=== PATIENT | female | born 1965 | race Two or more races ===

== ENCOUNTER → 2020-11-18 08:58 | Outpatient (BNVA) | payer MEDICAID, SELFPAY | PROVIDERS: PCP Nurse Practitioner Family; Visit Provider Urology | DX: R33.9 Retention of urine, unspecified (principal); R10.2 Pelvic and perineal pain; N94.9 Unspecified condition associated with female genital organs and menstrual cycle; N39.9 Disorder of urinary system, unspecified | CPT/HCPCS: 81003 ==

== ENCOUNTER 2021-11-16 13:49 | Emergency (ER) | payer MEDICAID, SELFPAY ==
[2021-11-16 13:55] VITALS: BP 159/100; PULSE 74; RESP 16; TEMP 37; O2SAT 98; BMI 49.6
--- NOTE | 2021-11-16 14:24 | W.ED.GENADLT ---
HPI - General Adult General: Chief complaint: General Medical Stated complaint: lumb in neck-Dr ask to come in if it moved, it did Time Seen by Provider: 11/16/21 14:06 Source: patient Mode of arrival: ambulatory Limitations: no limitations History of Present Illness: Patient is a very nice 56-year-old female presents to ED today with complaints of a possible lump in the left side of her neck that she noticed approximately 3 days ago. She contacted her PCP to schedule an evaluation but was told if the lump moved in any way she needed to come to the ED. Patient feels like the lump has moved inferiorly and was concerned regarding a possible clot to her carotid artery. Patient is not having any trouble breathing or swallowing. No hoarseness. She is not having any neurologic deficits. She has no other associated symptoms. Onset (ago): day(s) Location: neck Severity: mild Relieving factors: none Exacerbating factors: none Associated symptoms: Reports no associated symptoms; Deny chest pain, confusion, dyspnea, headache(s) or malaise Treatments prior to arrival: none Review of Systems Const: Denies: fever(s), chills, body aches, fatigue or malaise Eyes: Denies: change in vision, blurry vision, photophobia, floaters or seeing flashes ENMT: Denies: throat pain or odynophagia Card: Denies: chest pain Resp: Denies: dyspnea GI: Denies: abdominal pain Skin/Breast: Denies: new lesions or changes in skin color Neuro: Denies: headache(s), numbness in extremities, weakness in extremities, sensory changes, lack of coordination, difficulty walking, frequent falls, dizziness, vertigo, confusion, behavioral changes, Slurred speech present, difficulty communicating thoughts or seizure-like activity [facility] [place] ED PFSH: Medical History Cystocele with rectocele Surgical repair-2020 Genital atrophy of female Incomplete bladder emptying Surgical History H/O arthroscopy Revision arthroscopic autograft ligament replacement H/O: hysterectomy 1983 History of bilateral tubal ligation History of bladder surgery History of tonsillectomy Bilateral dissection tonsillectomy Family History Father , at age 54 Sedentary lifestyle Mother Healthy adult Social History Smoking and tobacco status: current every day smoker Alcohol intake: current Alcohol intake frequency: holidays/special occasions only Marital status: Current occupational status: disabled History of recent travel: No Physical Exam Const: COMMON NORMALS: no acute distress, patient oriented x3, no limitations and alert GENERAL APPEARANCE: cooperative NUTRITIONAL APPEARANCE: obese ORIENTATION/CONSCIOUSNESS: Yes awake, Yes oriented to person, Yes oriented to place and Yes oriented to time HENMT: COMMON NORMALS: normocephalic and atraumatic HEAD & SCALP: normal to inspection, normocephalic and atraumatic FACE & SINUS: normal facial exam Eye: GENERAL EYE: appearance normal, both eyes and all related structures and normal light reflex DIRECT OPHTHALMOSCOPY: Yes normal light reflex Neck/C-Spine: COMMON NORMALS: full ROM, no lymphadenopathy, no meningeal signs and Thyroid normal GENERAL: Yes normal visual inspection, No anterior neck swelling and No submandibular swelling THYROID: Thyroid normal CAROTIDS: Yes normal carotid upstroke CERVICAL SPINE: Yes cervical ROM normal OTHER: I do not appreciate any swelling/ lumps /lymphadenopathy or any other abnormalities to her neck with palpation Resp: COMMON NORMALS: normal respiratory effort and clear to auscultation bilaterally AUSCULTATION: clear to auscultation bilaterally Cardio: COMMON NORMALS: regular rate and regular rhythm RATE: regular rate RHYTHM: regular rhythm Neuro: CHYNA COMA SCALE: document GCS findings Chyna coma scale eye opening: Spontaneous Chyna coma scale verbal response: Orientated Rowe coma scale motor response: Obey commands Chyna coma scale total score: 15 COMMON NORMALS: patient oriented x3, CN's II-XII intact bilaterally, moves all extremities, no focal motor deficits, no sensory deficits noted and gait normal SENSORIUM/ORIENTATION: Yes alert, Yes oriented to person, Yes oriented to place and Yes oriented to time MENINGEAL SIGNS: Yes no meningeal signs CRANIAL NERVES: Yes CN normal except as noted SPEECH: speech normal GAIT: Yes Normal gait present MOTOR EXAM: 5/5 motor strength present throughout Skin: COMMON NORMALS: no rashes or lesions noted GENERAL SKIN EXAM: no rashes or lesions noted Course Vital Signs: Vital signs: Vital Signs Temperature 98.6 F 11/16/21 13:55 Pulse Rate 74 11/16/21 13:55 Respiratory Rate 16 11/16/21 13:55 Blood Pressure 159/100 11/16/21 13:55 Pulse Oximetry 98 11/16/21 13:55 MDM - General Adult Medical Decision Making I do not appreciate anything palpable on patient's physical exam. Based on her history and lack of other complaints have zero suspicion at this time for a carotid artery aneurysm, dissection, occlusion, or any other emergent process at this time. Discussed doing an ultrasound however patient feels she would like to wait until her appointment with primary care-I think this is reasonable. Return to ED precautions given. Discharge Plan Discharge Patient Disposition: Home Clinical Impression: Neck pain on left side Condition: Stable Prescriptions: No Action estradiol [Estrace] 0.01 % (0.1 mg/gram) cream 0.25 appful vaginal DAILY Qty: 42.5 12RF Rx Instructions: As directed daily x2 weeks then 3 times per week thereafter Discharge Orders: Discharge ED (Routine); Ordered 11/16/21 Ordered By: Janette Tamez Referrals: Vera Singh NP [Primary Care Provider] - Activity Restrictions/Additional Instructions: As we discussed please follow-up with primary care on as scheduled. Based on your history and physical exam I do not have any concern for anything emergent or life-threatening at this time and feel you are stable to continue following up with this on an outpatient basis. I hope you begin to feel better soon. 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
== END 2021-11-16 14:33 | disposition home or self-care (01) ==
PROVIDERS: Emergency Provider Physician Assistant; PCP Nurse Practitioner Family
DX: M54.2 Cervicalgia (principal); F17.210 Nicotine dependence, cigarettes, uncomplicated
CPT/HCPCS: 99281

== ENCOUNTER 2022-05-19 14:11 | Outpatient (CLI) | payer MEDICAID, SELFPAY ==
--- NOTE | 2022-05-19 14:33 | XR_ITS ---
WS: [id number] XR hip RT 2-3V wo/w pel* [id number] REASON FOR EXAM: PAIN IN R HIP FINDINGS: No fracture or focal bone lesion. The joint spaces intact and relatively well-preserved. There is minimal subchondral sclerosis with sm all osteophytosis of the acetabulum. No soft tissue abnormality. XR/XR hip RT 2-3V wo/w pel* [id number] IMPRESSION: No significant bone or joint abnormality.
== END 2022-05-19 14:12 | disposition home or self-care (01) ==
PROVIDERS: PCP Nurse Practitioner Family; Visit Provider Nurse Practitioner Family
DX: M25.551 Pain in right hip (principal)
CPT/HCPCS: 73502

== ENCOUNTER 2022-06-04 14:16 | Outpatient (CLI) | payer MEDICAID, SELFPAY ==
--- NOTE | 2022-06-04 14:30 | USCV_ITS ---
Breonna Anderson Age: 56 Gender: F : 1965 Exam Date: 06/04/2022 14:55 Ordering Phys: Vera Singh NP Technologist: Flaca Aguilera [place] [facility] [place]: non rheumatic AOV stenosis BP: 123 / 70 HR: 55 Rhythm: Sinus Technical Quality: Adequate MEASUREMENTS (Male / Female) Normal Values 2D ECHO LV Diastolic Diameter PLAX 4.3 cm 4.2 - 5.9 / 3.9 - 5.3 cm LV Systolic Diameter PLAX 3.6 cm IVS Diastolic Thickness 1.1 cm 0.6 - 1.0 / 0.6 - 0.9 cm IVS Systolic Thickness 1.5 cm LVPW Diastolic Thickness 1.1 cm 0.6 - 1.0 / 0.6 - 0.9 cm LVPW Systolic Thickness 1.2 cm LVOT Diameter 2.0 cm LV Ejection Fraction 2D Teich 37.1 % LV Ejection Fraction MOD 2C 66.9 % LV Ejection Fraction 2C AL 68.3 % LA Diameter 2.0 cm LA Width 3.0 cm LA Height 5.7 cm RA Width 3.9 cm RA Height 4.5 cm Aorta at Sinotubular Diameter 2.5 cm IVC Diameter 1.3 cm M-MODE MV E Point Septal Separation 0.4 cm DOPPLER AV Peak Velocity 156.0 cm/s LVOT Peak Velocity 125.0 cm/s AV Area Cont Eq vti 2.6 cm squared AV Area Cont Eq pk 2.6 cm squared MV Peak Velocity 86.0 cm/s MV Area PHT 3.1 cm squared Mitral E to A Ratio 1.1 MV E' Velocity 42.5 cm/s Mitral E to MV E' Ratio 10.4 Mitral E to LV E' Lateral Ratio 9.8 Mitral E to LV E' Septal Ratio 11.2 TR Peak Velocity 108.4 cm/s TR Peak Gradient 4.7 mmHg Right Atrial Pressure 3.0 mmHg Pulmonary Artery Systolic Pressu 7.7 mmHg RV Acceleration Time 0.1 s RV Ejection Time 0.4 s RV AcT/ET 0.4 FINDINGS Left Ventricle Normal left ventricular size, systolic function and wall thickness, with no regional wall motion abnormalities. Left ventricular ejection fraction is estimated at 60 %. Grade II/IV diastolic dysfunction, moderately elevated filling pressures. Right Ventricle The right ventricle is normal in size and function. Right Atrium The right atrium is normal in size. Left Atrium The left atrium is normal in size. Mitral Valve Structurally normal mitral valve without significant stenosis or prolapse. There is no mitral regurgitation. Aortic Valve Mild aortic valve calcification. No aortic valve stenosis. Trace aortic valve regurgitation. Tricuspid Valve Structurally normal tricuspid valve without significant stenosis or regurgitation. Pulmonary artery systolic pressure is normal. Pulmonic Valve Structurally normal pulmonic valve without significant stenosis. There is no pulmonic regurgitation. Pericardium Normal pericardium without effusion. Aorta Normal ascending aorta dimension. IVC The inferior vena cava appears normal. CONCLUSIONS 1-Normal left ventricular size, systolic function and wall thickness, with no regional wall motion abnormalities. Left ventricular ejection fraction is estimated at 60 %. Grade II/IV diastolic dysfunction, moderately elevated filling pressures. 2-There is no pericardial effusion. 3-No significant valve abnormalities. 4-Right atrial pressure is around 5 mm of mercury. Susan Soto MD (Electronically Signed) Final Date: 04 June 2022 23:27 S
== END 2022-06-04 14:17 | disposition home or self-care (01) ==
LOC: RAD 14:20
PROVIDERS: PCP Nurse Practitioner Family; Visit Provider Nurse Practitioner Family
DX: I35.0 Nonrheumatic aortic (valve) stenosis (principal)
CPT/HCPCS: 93306

== ENCOUNTER → 2022-08-25 14:14 | Outpatient (BNVA) | payer MEDICAID, SELFPAY | PROVIDERS: PCP Nurse Practitioner Family; Visit Provider Internal Medicine | DX: R07.9 Chest pain, unspecified (principal); R00.1 Bradycardia, unspecified; R06.09 Other forms of dyspnea | CPT/HCPCS: 93005; 99204 ==

== ENCOUNTER 2023-04-17 09:26 | Emergency (ER) | payer MEDICAID, SELFPAY ==
[2023-04-17 09:34] VITALS: BP 192/107; PULSE 81; RESP 14; TEMP 37.2; O2SAT 100; BMI 53.7
--- NOTE | 2023-04-17 10:03 | W.ED.DENTAL ---
HPI - Dental/Oral General: Chief complaint: Dental/Oral Stated complaint: left jaw pains Time Seen by Provider: 04/17/23 09:55 History of Present Illness: Patient presents to the ER with complaints of dental cavity and swelling in pain to left jaw left submandibular area. Patient has a known hole in her tooth that she self packs and self treats. Patient thinks she got the packing around so she pulled it out and then her jaw started hurting down into her throat. Patient think she has an infection. Review of Systems General: Reports: 10 or more systems reviewed and unremarkable except in HPI and below PFSH ED PFSH: Medical History Genital atrophy of female Cystocele with rectocele Surgical repair-2020 Incomplete bladder emptying Surgical History H/O: hysterectomy 1983 History of tonsillectomy Bilateral dissection tonsillectomy History of bilateral tubal ligation H/O arthroscopy Revision arthroscopic autograft ligament replacement History of bladder surgery Family History Father , at age 54 Sedentary lifestyle Mother Healthy adult Social History Smoking and tobacco/nicotine status: current every day tobacco/nicotine user cigarettes Years cigarettes smoked: 2 Alcohol intake: current Alcohol intake frequency: holidays/special occasions only Alcohol type: beer Substance/Drug Use: never Marital status: Current occupational status: disabled Physical Exam Const: COMMON NORMALS: no acute distress, average body habitus, patient oriented x3, no limitations, healthy appearing, alert and well nourished HENMT: COMMON NORMALS: normocephalic, atraumatic, hearing grossly normal bilaterally, external ears normal, EAC's normal, Normal external nose present, moist oral mucous membranes and oropharynx normal HEAD & SCALP: normocephalic and atraumatic NOSE: Normal external nose present EXTERNAL EAR: Yes external ears normal EXTERNAL AUDITORY CANAL: EAC's normal Neck/C-Spine: COMMON NORMALS: full ROM, supple, no meningeal signs and no JVD; negative for no lymphadenopathy (Left anterior cervical lymphadenopathy) Chest: COMMONS NORMALS: normal palpation of entire chest wall Resp: COMMON NORMALS: normal respiratory effort, No retractions, No use of accessory muscles and clear to auscultation bilaterally AUSCULTATION: clear to auscultation bilaterally Cardio: COMMON NORMALS: no JVD, regular rate, regular rhythm, S1 normal heart sound present, S2 normal heart sound present, No gallops present (Cardio), No clicks present (Cardio), No murmurs present (Cardio) and No rub (Cardio) RATE: regular rate RHYTHM: regular rhythm HEART SOUNDS: S1 normal heart sound present and S2 normal heart sound present Neuro: COMMON NORMALS: patient oriented x3 SENSORIUM/ORIENTATION: Yes alert MENINGEAL SIGNS: Yes no meningeal signs Course Vital Signs: Vital signs: Vital Signs Temperature 98.9 F 04/17/23 09:34 Pulse Rate 81 04/17/23 09:34 Respiratory Rate 14 04/17/23 09:34 Blood Pressure 192/107 04/17/23 09:34 Pulse Oximetry 100 04/17/23 09:34 Oxygen Delivery Me thod Room Air 04/17/23 09:34 MDM - Dental/Oral Medical Decision Making Patient be treated with antibiotics and a Diflucan to take after she is finished with antibiotics because she is prone to yeast infections. Patient should follow-up with her dentist for definitive treatment. Differential Diagnosis Likely dental caries and toothache; Unlikely gingival abscess, dental abscess, fracture of tooth or aphthous ulcer Medical Records I reviewed the patient's medical records. Lab Data I reviewed the patient's lab results. No radiology studies performed this visit Discharge Plan Discharge Patient Disposition: Home Clinical Impression: Dental caries Condition: Stable Prescriptions: New amoxicillin 500 mg capsule 500 mg PO TID 10 Days Qty: 30 0RF Diflucan 200 mg tablet See Rx Instructions .ROUTE .COMPLEX Qty: 1 0RF Rx Instructions: 1 pill daily after finished with the antibiotics. No Action cholecalciferol (vitamin D3) 125 mcg (5,000 unit) capsule 125 mcg PO DAILY Discharge Orders: Discharge ED (Routine); Ordered 04/17/23 Ordered By: Clayton Matos Referrals: Vera Singh NP [Primary Care Provider] - 1 week Patient Instructions: Dental Abscess (ED) Activity Restrictions/Additional Instructions: Please finish all antibiotics as directed. Please take the Diflucan after you are finished with the antibiotics. Please follow-up with your PCP within the next 7 days on an as-needed basis. 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
== END 2023-04-17 10:36 | disposition home or self-care (01) ==
PROVIDERS: Emergency Provider Emergency Medicine; PCP Nurse Practitioner Family
DX: K02.9 Dental caries, unspecified (principal); F17.210 Nicotine dependence, cigarettes, uncomplicated
CPT/HCPCS: 99283

== ENCOUNTER → 2023-08-29 13:19 | Outpatient (BNVA) | payer MEDICAID, SELFPAY | PROVIDERS: PCP Nurse Practitioner Family; Visit Provider Internal Medicine | DX: R06.09 Other forms of dyspnea (principal); I10 Essential (primary) hypertension; Z87.891 Personal history of nicotine dependence | CPT/HCPCS: 99214 ==

== ENCOUNTER 2023-11-13 11:27 | Emergency (ER) | payer MEDICAID, SELFPAY ==
--- NOTE | 2023-11-13 11:37 | ED_ITS ---
HPI - General Adult 2 General: Chief complaint: Upper Respiratory Infection Stated complaint: both ears pain and congestion Time Seen by Provider: 11/13/23 11:35 History of Present Illness: 58-year-old female presents emergency ro om complaining of bilateral ear pain. Patient reports fever last night. Is also had some congestion. She reports that her primary care doctor had called in some eardrops but that did not help her symptoms. No dysuria urgency or frequency sinus congestion no epistaxis. No productive cough no myalgias or diarrhea. Associated symptoms: Deny chest pain, dyspnea or rash Related Data Home Medications Medication Instructions Recorded Confirmed cholecalciferol (vitamin D3) 125 125 mcg PO DAILY 08/25/22 08/29/23 mcg (5,000 unit) capsule Previous Rx's Medication Instructions Recorded ciprofloxacin HCl 250 mg tablet 250 mg PO BID #14 tabs 11/13/23 (Cipro) methylprednisolone 4 mg tablets in See Rx Instructions PO .COMPLEX 11/13/23 a dose pack (Medrol (Femi)) #21 ea Allergies Allergy/AdvReac Type Severity Reaction Status Date / Time acetaminophen [From Tylenol] Allergy Mild rash Verified 11/13/23 11:53 Review of Systems 2 Const: Denies: fever(s) or chills ENMT: Reports: ear or mastoid pain; Denies: ear discharge Card: Denies: chest pain Resp: Denies: dyspnea GI: Denies: abdominal pain : Denies: dysuria, urinary frequency or urinary urgency Musc: Denies: neck pain or back pain Skin/Breast: Denies: rash PFSH ED 2 PFSH: Medical History Genital atrophy of female Cystocele with rectocele Surgical repair-2020 Incomplete bladder emptying Surgical History H/O: hysterectomy 1984 History of tonsillectomy Bilateral dissection tonsillectomy History of bilateral tubal ligation H/O arthroscopy Revision arthroscopic autograft ligament replacement History of bladder surgery Family History Father , at age 54 Sedentary lifestyle Mother Healthy adult Social History Smoking and tobacco/nicotine status: former use of tobacco/nicotine Alcohol intake: current Alcohol intake frequency: holidays/special occasions only Alcohol type: beer Substance/Drug Use: never Marital status: Current occupational status: disabled Physical Exam 2 Const: COMMON NORMALS: no acute distress GENERAL APPEARANCE: cooperative and comfortable ORIENTATION/CONSCIOUSNESS: Yes awake, Yes oriented to person, Yes oriented to place and Yes oriented to time HENMT: COMMON NORMALS: normocephalic, atraumatic, hearing grossly normal bilaterally, external ears normal, EAC's normal and Normal nasal mucous membranes and turbinates present HEAD & SCALP: normocephalic and atraumatic NOSE: Normal nasal mucous membranes and turbinates present EXTERNAL EAR: Yes external ears normal EXTERNAL AUDITORY CANAL: EAC's normal OTHER: Middle ear effusions bilaterally no purulent drainage no perforation fluid appears to be dull and clear with an air-fluid level bilaterally. Eye: COMMON NORMALS: Equal, round and reactive pupils present, EOMs intact bilaterally, conjunctivae normal and no scleral icterus CONJUNCTIVA: Yes conjunctivae normal PUPIL: Yes Equal, round and reactive pupils present Neck/C-Spine: COMMON NORMALS: full ROM, no lymphadenopathy, supple and no JVD Lymph: LYMPHATIC: no lymphadenopathy noted and no lymphedema noted Resp: COMMON NORMALS: normal respiratory effort, No retractions, No use of accessory muscles and clear to auscultation bilaterally AUSCULTATION: clear to auscultation bilaterally Cardio: COMMON NORMALS: no JVD, regular rate, regular rhythm and No murmurs present (Cardio) RATE: regular rate RHYTHM: regular rhythm GI: COMMON NORMALS: Soft to palpation and No hepatosplenomegaly present A USCULTATION: Yes normoactive bowel sounds PALPATION: Yes Soft to palpation, No Tenderness to palpation present (GI), No Guarding due to palpation present (GI) and Yes No hepatosplenomegaly present Extremity: COMMON NORMALS: normal to inspection, capillary refill normal, no clubbing, cyanosis or edema, no calf tenderness and no pedal edema Neuro: SENSORIUM/ORIENTATION: Yes oriented to person, Yes oriented to place and Yes oriented to time Skin: COMMON NORMALS: no rashes or lesions noted GENERAL SKIN EXAM: no rashes or lesions noted Course 2 Vital Signs: Vital signs: Vital Signs Temperature 98.6 F 11/13/23 11:41 Pulse Rate 83 11/13/23 15:44 Respiratory Rate 14 11/13/23 13:04 Blood Pressure 122/90 11/13/23 15:44 Pulse Oximetry 97 11/13/23 15:44 Oxygen Delivery Me thod Room Air 11/13/23 12:35 MDM - General Adult Medical Decision Making No leukocytosis remainder of exam is normal urine does show mild cystitis. Will start her on oral antibiotic Cipro 250 twice daily also on steroid pack. Follow-up with ENT. Lab Data 11/13/23 12:12 11/13/23 12:12 Radiology Impressions Chest X-Ray 11/13/23 12:04 IMPRESSION: No acute findings. Somewhat limited study due to the patient's body habitus. Laboratory Results WBC 4.55 10^3/uL (3.29-11.43) 11/13/23 12:12 RBC 5.07 10^6/uL (3.85-5.65) 11/13/23 12:12 Hgb 16.00 g/dL (11.27-16.99) 11/13/23 12:12 Hct 48.0 % (36-47) H 11/13/23 12:12 MCV 94.7 fl (85-98) 11/13/23 12:12 MCH 31.6 pg (27-33) 11/13/23 12:12 MCHC 33.3 g/dL (30-55) 11/13/23 12:12 RDW 12.5 % (12.1-15.1) 11/13/23 12:12 Plt Count 182 10^3/cmm (157-399) 11/13/23 12:12 MPV 8.9 fL (7.4-10.4) 11/13/23 12:12 Neut % (Auto) 51.9 % 11/13/23 12:12 Lymph % (Auto) 33.2 % 11/13/23 12:12 Ellis % (Auto) 11.6 % 11/13/23 12:12 Eos % (Auto) 2.2 % 11/13/23 12:12 Baso % (Auto) 0.4 % 11/13/23 12:12 Neut # (Auto) 2.36 10^3/uL (1.8-7.7) 11/13/23 12:12 Lymph # (Auto) 1.5 10^3/uL (0.8-4.8) 11/13/23 12:12 Ellis # (Auto) 0.5 10^3/uL (0.2-0.9) 11/13/23 12:12 Eos # (Auto) 0.1 10^3/uL (0.0-0.8) 11/13/23 12:12 Baso # (Auto) 0.0 10^3/uL (0.0-0.1) 11/13/23 12:12 Nucleated RBC % (auto) 0 % 11/13/23 12:12 Nucleated RBCs # 0.0 /100WBC 11/13/23 12:12 Sodium 135 mmol/L (136-145) L 11/13/23 12:12 Potassium 4.2 mmol/L (3.5-5.1) 11/13/23 12:12 Chloride 103 mmol/L (98-107) 11/13/23 12:12 Carbon Dioxide 19 mmol/L (22-29) L 11/13/23 12:12 Anion Gap 17.2 (5-19) 11/13/23 12:12 BUN 12 mg/dL (8-23) 11/13/23 12:12 Creatinine 1.0 mg/dL (0.5-0.9) H 11/13/23 12:12 GFR Calculation 56.6 mL/min (90-130) L 11/13/23 12:12 Glucose 107 mg/dL (65-115) 11/13/23 12:12 Calculated Osmolality 280 mOsm/kg (285-295) L 11/13/23 12:12 Calcium 10.0 mg/dL (8.5-10.5) 11/13/23 12:12 Total Bilirubin 0.4 mg/dL (0.15-1.2) 11/13/23 12:12 AST 26 U/L (0-32) 11/13/23 12:12 ALT 20 U/L (0-33) 11/13/23 12:12 Alkaline Phosphatase 81 U/L (35-105) 11/13/23 12:12 Total Protein 7.6 g/dL (6.6-8.7) 11/13/23 12:12 Albumin 4.1 g/dL (3.5-5.2) 11/13/23 12:12 Globulin 3.5 g/dL (1.3-4.6) 11/13/23 12:12 Urine Color Dark yellow (Yellow) A 11/13/23 14:13 Urine Appearance Cloudy (CLEAR) A 11/13/23 14:13 Urine pH 5.0 (5-7) 11/13/23 14:13 Ur Specific [place] 1.033 (1.005-1.030) H 11/13/23 14:13 Urine Protein 1+ (Negative) A 11/13/23 14:13 Urine Glucose (UA) Negative (Normal) 11/13/23 14:13 Urine Ketones Trace (Negative) 11/13/23 14:13 Urine Blood Negative (Negative) 11/13/23 14:13 Urine Nitrate Negative (Negative) 11/13/23 14:13 Urine Bilirubin 1+ (Negative) H 11/13/23 14:13 Urine Urobilinogen 1.0 mg/dL (Negative) 11/13/23 14:13 Ur Leukocyte Esterase Negative (Negative) 11/13/23 14:13 Urine RBC 0-2 /hpf (0-2) 11/13/23 14:13 Urine WBC 6-10 /hpf (0-5) 11/13/23 14:13 Ur Squamous Epith Cells 21-50 /hpf (0-5) 11/13/23 14:13 Amorphous Sediment Not Reportable 11/13/23 14:13 Urine Bacteria 4+ /hpf (NONE) H 11/13/23 14:13 Hyaline Casts 70.32 /lpf 11/13/23 14:13 All radiology interpretation(s) finalized by discharge Discharge Plan Discharge Patient Disposition: Home Clinical Impression: Cystitis, Chronic middle ear effusion Condition: Stable Prescriptions: New Cipro 250 mg tablet 250 mg PO BID Qty: 14 0RF Medrol (Femi) 4 mg tablets,dose pack See Rx Instructions .ROUTE .COMPLEX Qty: 21 0RF Rx Instructions: orally per package directions No Action cholecalciferol (vitamin D3) 125 mcg (5,000 unit) capsule 125 mcg PO DAILY Discharge Orders: Discharge ED (Routine); Ordered 11/13/23 Ordered By: Bam Ramon Discharge Diet: Usual diet Discharge Activity: Increase activity as tolerated Patient Instructions: Opioid Safety, Pain Management Activity Restrictions/Additional Instructions: Thank you for choosing [facility] [place] for your healthcare needs today. It is very important that you follow up as instructed or that you return to the Emergency Department should you have concerns or if your condition changes or worsens in any way. You are seen today with complaint of a fever and chronic ear pain. On exam there is no evidence of infection in your ears there is evidence of effusion in the ears (fluid in the middle ear) this appears chronic. Will give you a series of steroids for this and refer you to the ear nose and throat doctor. Additionally you are found to have a mild cystitis this may also be contributing to not feeling well and over the fever. Will give you a course of antibiotics for this. To follow-up with your doctor if not proving Coding Level of Care Code ED [employer] for Angela العراقي
[2023-11-13 11:41] VITALS: BP 132/100; PULSE 90; RESP 20; TEMP 37; O2SAT 95; BMI 53.2
--- NOTE | 2023-11-13 12:04 | XRR_ITS ---
PROCEDURE INFORMATION: Exam: XR Chest Exam date and time: 11/13/2023 12:19 PM Age: 58 years old Clinical indication: Cough and dyspnea; Patient HX: Dyspnea, cough; Congestion TECHNIQUE: Imaging protocol: Radiologic exam of the chest. Views: 1 view. COMPARISON: No relevant prior studies available. FINDINGS: Lungs: Unremarkable. No consolidation. Pleural spaces: Unremarkable. No pleural effusion. No pneumothorax. Heart/Mediastinum: Unremarkable. No cardiomegaly. Bones/joints: No acute findings. XR/XR chest 1V portable [id number] IMPRESSION: No acute findings. Somewhat limited study due to the patient's body habitus.
[2023-11-13 12:18] LABS: Basophils % 0.4 %; Eosinophils # 0.1 10^3/uL (0.0-0.8); Eosinophils % 2.2 %; Lymphocytes # 1.5 10^3/uL (0.8-4.8); Lymphocytes % 33.2 %; Mean Corpuscular HGB Conc 33.3 g/dL (30-55); Mean Corpuscular Hemoglobin 31.6 pg (27-33); Mean Corpuscular Volume 94.7 fl (85-98); Mean Platelet Volume 8.9 fL (7.4-10.4); Monocytes # 0.5 10^3/uL (0.2-0.9); Monocytes % 11.6 %; Neutrophils # 2.36 10^3/uL (1.8-7.7); Neutrophils % 51.9 %; Nucleated Red Blood Cells % 0 %; Platelet Count 182 10^3/cmm (157-399); Red Blood Count 5.07 10^6/uL (3.85-5.65); Red Cell Distribution Width 12.5 % (12.1-15.1); White Blood Count 4.55 10^3/uL (3.29-11.43)
[2023-11-13 12:35] VITALS: BP 122/87; PULSE 89; O2SAT 94
[2023-11-13 12:36] LABS: Alanine Aminotransferase 20 U/L (0-33); Albumin Level 4.1 g/dL (3.5-5.2); Alkaline Phosphatase 81 U/L (35-105); Anion Gap 17.2 (5-19); Aspartate Amino Transferase 26 U/L (0-32); Blood Urea Nitrogen 12 mg/dL (8-23); Carbon Dioxide 19 mmol/L (22-29); Chloride 103 mmol/L (98-107); Globulin 3.5 g/dL (1.3-4.6); Glomerular Filtration Rate 56.6 mL/min (90-130); Glucose 107 mg/dL (65-115); Osmolality Calculated 280 mOsm/kg (285-295); Potassium 4.2 mmol/L (3.5-5.1); Sodium 135 mmol/L (136-145); Total Bilirubin 0.4 mg/dL (0.15-1.2); Total Protein 7.6 g/dL (6.6-8.7)
[2023-11-13 12:46] LABS: Creatinine Clr Calc Pharmacy 87.1344
[2023-11-13 13:04] VITALS: RESP 14
[2023-11-13 14:19] LABS: Charge for UA Resulting for Rev
[2023-11-13 14:21] LABS: Bilirubin Urine 1+ (Negative); Blood Urine Negative (Negative); Glucose Urine UA Negative (Normal); Ketones Urine Trace (Negative); Leukocyte Esterase Urine Negative (Negative); Nitrate Urine Negative (Negative); Protein Urine 1+ (Negative); Urine Appearance Cloudy (CLEAR); Urine Color Dark Yellow (Yellow)
[2023-11-13 14:26] LABS: Bacteria Urine 4+ /hpf; Hyaline Casts Urine 70.32 /lpf; RBC Urine 0-2 /hpf (0-2); Squamous Epithelial Cell Urine 21-50 /hpf (0-5)
[2023-11-13 14:35] LABS: Specific Gravity, Urine 1.033 (1.005-1.030)
[2023-11-13 14:36] LABS: Add Urine Culture? No; UA Slide Review UA Slide Review Perf
[2023-11-13 15:44] VITALS: BP 122/90; PULSE 83; O2SAT 97
== END 2023-11-13 15:40 | disposition home or self-care (01) ==
PROVIDERS: Emergency Provider Family Medicine
DX: H92.03 Otalgia, bilateral (principal); N30.90 Cystitis, unspecified without hematuria; H74.8X3 Other specified disorders of middle ear and mastoid, bilateral; Z87.891 Personal history of nicotine dependence
CPT/HCPCS: 71045; 80053; 81003; 81015; 85025; 99284

== ENCOUNTER 2023-11-25 08:38 | Emergency (ER) | payer MEDICAID, SELFPAY ==
[2023-11-25 08:46] VITALS: BP 172/99; PULSE 86; RESP 18; TEMP 37.2; O2SAT 96; BMI 51.9
--- NOTE | 2023-11-25 08:56 | ED_ITS ---
HPI - Abdominal Pain 2 General: Chief Complaint: Abdominal Pain Stated Complaint: RT abd pain Time Seen by Provider: 11/25/23 08:42 History of Present Illness: 58-year-old female presents emergency ro om with complaints of right-sided abdominal pain. Pain began overnight. She denies any dysuria urgency or frequency she was seen last week had a middle ear effusion as well as a bladder infection both of those issues seem to have improved. Patient reports severe pain with any kind of movement [facility] she is sitting at the bedside neck comes to get her to lay down flat she complains of severe right upper quadrant and right sided pain. She did not notice anything that exacerbates or relieves it. She has not had a fever. No vomiting or diarrhea no hematochezia melena hematemesis coffee-ground emesis MD elicited complaint: abdominal pain Onset (ago): hour(s) Pain Consistency: constant Location: RUQ Severity: severe Exacerbating factors: nothing Relieving factors: nothing Associated Symptoms: Denies chills, dysuria and fever(s) Related Data Home Medications Medication Instructions Recorded Confirmed albuterol sulfate 90 mcg/actuation 1 puff inhalation Q4H PRN Wheezing 11/25/23 11/25/23 aerosol inhaler (Ventolin HFA) Previous Rx's Medication Instructions Recorded albuterol sulfate 90 mcg/actuation 2 inh inhalation Q4H PRN shortness 11/25/23 aerosol inhaler of breath or wheezing #18 grams amoxicillin 875 mg-potassium 1 tab PO BID #20 tabs 11/25/23 clavulanate 125 mg tablet tramadol 50 mg tablet 50 mg PO Q6H PRN pain #14 tabs 11/25/23 Allergies Allergy/AdvReac Type Severity Reaction Status Date / Time acetaminophen [From Tylenol] Allergy Mild rash Verified 11/13/23 11:53 Review of Systems 2 Const: Denies: fever(s) or chills Card: Denies: chest pain Resp: Denies: dyspnea GI: Reports: abdominal pain : Denies: dysuria, urinary frequency or urinary urgency Musc: Denies: neck pain or back pain Skin/Breast: Denies: rash PFSH ED 2 PFSH: Medical History Genital atrophy of female Cystocele with rectocele Surgical repair-2020 Incomplete bladder emptying Surgical History H/O: hysterectomy 1984 History of tonsillectomy Bilateral dissection tonsillectomy History of bilateral tubal ligation H/O arthroscopy Revision arthroscopic autograft ligament replacement History of bladder surgery Family History Father , at age 54 Sedentary lifestyle Mother Healthy adult Social History Smoking and tobacco/nicotine status: former use of tobacco/nicotine Alcohol intake: current Alcohol intake frequency: holidays/special occasions only Alcohol type: beer Substance/Drug Use: never Marital status: Current occupational status: disabled Physical Exam 2 Const: GENERAL APPEARANCE: cooperative ORIENTATION/CONSCIOUSNESS: Yes awake, Yes oriented to person, Yes oriented to place and Yes oriented to time HENMT: COMMON NORMALS: normocephalic, atraumatic and hearing grossly normal bilaterally HEAD & SCALP: normocephalic and atraumatic Resp: COMMON NORMALS: normal respiratory effort, No retractions, No use of accessory muscles and clear to auscultation bilaterally AUSCULTATION: clear to auscultation bilaterally Cardio: COMMON NORMALS: regular rate, regular rhythm and No murmurs present (Cardio) RATE: regular rate RHYTHM: regular rhythm GI: COMMON NORMALS: No hepatosplenomegaly present AUSCULTATION: Yes normoactive bowel sounds PALPATION: Yes Tenderness to palpation present (GI) Details: RUQ, No Guarding due to palpation present (GI) and Yes No hepatosplenomegaly present Extremity: COMMON NORMALS: normal to inspection, capillary refill normal, no clubbing, cyanosis or edema, no calf tenderness and no pedal edema Neuro: SENSORIUM/ORIENTATION: Yes oriented to person, Yes oriented to place and Yes oriented to time Skin: COMMON NORMALS: no rashes or lesions noted GENERAL SKIN EXAM: no rashes or lesions noted Course 2 Vital Signs: Vital signs: Vital Signs Temperature 98.9 F 11/25/23 09:04 Pulse Rate 76 11/25/23 11:37 Respiratory Rate 18 11/25/23 09:04 Blood Pressure 134/76 11/25/23 11:37 Pulse Oximetry 96 11/25/23 11:37 Oxygen Delivery Me thod Room Air 11/25/23 09:04 MDM - Abdominal Pain Medical Decision Making Labs and imaging reviewed. No acute abdominal findings. There is some comes consolidation at the right lung base. Chest x-ray did not show anything significant. Reviewed with radiology definitely does have pneumonia at the right base compatible with causing her pain pleuritic chest pain. Will start her on Augmentin and also give her hydrocodone to use as needed. Use albuterol as needed. Follow-up as needed Medical Records I reviewed the patient's medical records. Lab Data I reviewed the patient's lab results. 11/25/23 09:09 11/25/23 09:09 Labs/Radiology: Radiology Impressions Abdomen/Pelvis CT 11/25/23 09:06 IMPRESSION: 1. No renal obstruction or hydronephrosis. No calcifications. 2. No appendicitis. The appendix is very difficult to visualize but there are no secondary findings of appendicitis. 3. Bibasilar areas of consolidation with a small RIGHT pleural effusion. 4. Additional tree-in-bud airspace disease at the lung bases consistent with endobronchial pneumonia. 5. Prior hysterectomy. 6. Negative gallbladder. Chest X-Ray 11/25/23 10:20 Impression: There is cardiomegaly without failure Minimal linear atelectasis or infiltrate is noted. Laboratory Results WBC 11.27 10^3/uL (3.29-11.43) 11/25/23 09:09 RBC 4.48 10^6/uL (3.85-5.65) 11/25/23 09:09 Hgb 14.20 g/dL (11.27-16.99) 11/25/23 09:09 Hct 41.7 % (36-47) 11/25/23 09:09 MCV 93.1 fl (85-98) 11/25/23 09:09 MCH 31.7 pg (27-33) 11/25/23 09:09 MCHC 34.1 g/dL (30-55) 11/25/23 09:09 RDW 12.3 % (12.1-15.1) 11/25/23 09:09 Plt Count 247 10^3/cmm (157-399) 11/25/23 09:09 MPV 8.7 fL (7.4-10.4) 11/25/23 09:09 Neut % (Auto) 74.1 % 11/25/23 09:09 Lymph % (Auto) 15.0 % 11/25/23 09:09 [place] % (Auto) 6.4 % 11/25/23 09:09 Eos % (Auto) 3.5 % 11/25/23 09:09 Baso % (Auto) 0.2 % 11/25/23 09:09 Neut # (Auto) 8.36 10^3/uL (1.8-7.7) H 11/25/23 09:09 Lymph # (Auto) 1.7 10^3/uL (0.8-4.8) 11/25/23 09:09 [place] # (Auto) 0.7 10^3/uL (0.2-0.9) 11/25/23 09:09 Eos # (Auto) 0.4 10^3/uL (0.0-0.8) 11/25/23 09:09 Baso # (Auto) 0.0 10^3/uL (0.0-0.1) 11/25/23 09:09 Nucleated RBC % (auto) 0 % 11/25/23 09:09 Nucleated RBCs # 0.0 /100WBC 11/25/23 09:09 Sodium 136 mmol/L (136-145) 11/25/23 09:09 Potassium 4.3 mmol/L (3.5-5.1) 11/25/23 09:09 Chloride 103 mmol/L (98-107) 11/25/23 09:09 Carbon Dioxide 21 mmol/L (22-29) L 11/25/23 09:09 Anion Gap 16.3 (5-19) 11/25/23 09:09 BUN 8 mg/dL (8-23) 11/25/23 09:09 Creatinine 0.6 mg/dL (0.5-0.9) 11/25/23 09:09 GFR Calculation 102.0 mL/min (90-130) 11/25/23 09:09 Glucose 126 mg/dL (65-115) H 11/25/23 09:09 Calculated Osmolality 282 mOsm/kg (285-295) L 11/25/23 09:09 Calcium 9.7 mg/dL (8.5-10.5) 11/25/23 09:09 Magnesium 2.0 mg/dL (1.7-2.3) 11/25/23 09:09 Total Bilirubin 1.4 mg/dL (0.15-1.2) H 11/25/23 09:09 AST 15 U/L (0-32) 11/25/23 09:09 ALT 32 U/L (0-33) 11/25/23 09:09 Alkaline Phosphatase 68 U/L (35-105) 11/25/23 09:09 Total Protein 7.5 g/dL (6.6-8.7) 11/25/23 09:09 Albumin 4.0 g/dL (3.5-5.2) 11/25/23 09:09 Globulin 3.5 g/dL (1.3-4.6) 11/25/23 09:09 Lipase 26 U/L (13-60) 11/25/23 09:09 Urine Color [place] (Yellow) A 11/25/23 10:03 Urine Appearance Turbid (CLEAR) A 11/25/23 10:03 Urine pH 5.5 (5-7) 11/25/23 10:03 Ur Specific [place] 1.022 (1.005-1.030) 11/25/23 10:03 Urine Protein Trace (Negative) A 11/25/23 10:03 Urine Glucose (UA) Negative (Normal) 11/25/23 10:03 Urine Ketones Trace (Negative) 11/25/23 10:03 Urine Blood Negative (Negative) 11/25/23 10:03 Urine Nitrate Negative (Negative) 11/25/23 10:03 Urine Bilirubin 1+ (Negative) H 11/25/23 10:03 Urine Urobilinogen 1.0 mg/dL (Negative) 11/25/23 10:03 Ur Leukocyte Esterase 2+ (Negative) A 11/25/23 10:03 Urine RBC None /hpf (0-2) 11/25/23 10:03 Urine WBC 5-10 /hpf (0-5) H 11/25/23 10:03 Ur Squamous Epith Cells 25-40 /hpf (0-5) H 11/25/23 10:03 Amorphous Sediment Not Reportable 11/25/23 10:03 Urine Bacteria 2+ /hpf (NONE) H 11/25/23 10:03 All radiology interpretation(s) finalized by discharge Discharge Plan Discharge Patient Disposition: Home Clinical Impression: Pneumonia, Pleuritic chest pain Condition: Stable Prescriptions: New albuterol sulfate 90 mcg/actuation HFA aerosol inhaler 2 inh INHALATION Q4H PRN (Reason: shortness of breath or wheezing) Qty: 18 0RF amoxicillin-pot clavulanate 875-125 mg tablet 1 tab PO BID Qty: 20 0RF tramadol 50 mg tablet 50 mg PO Q6H PRN (Reason: pain) Qty: 14 0RF No Action Ventolin HFA 90 mcg/actuation HFA aerosol inhaler 1 puff INHALATION Q4H PRN (Reason: Wheezing) Discharge Orders: Discharge ED (Routine); Ordered 11/25/23 Ordered By: Bam Ramon Discharge Diet: Usual diet Discharge Activity: Increase activity as tolerated Patient Instructions: Pneumonia (ED), Opioid Safety, Pain Management Activity Restrictions/Additional Instructions: Thank you for choosing [facility] for your healthcare needs today. It is very important that you follow up as instructed or that you return to the Emergency Department should you have concerns or if your condition changes or worsens in any way. 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
[2023-11-25 09:04] VITALS: BP 172/99; PULSE 86; RESP 18; TEMP 37.2; O2SAT 96
--- NOTE | 2023-11-25 09:06 | CT_ITS ---
WS: [id number] CT ABDOMEN AND PELVIS NONCONTRAST HISTORY: Abdominal pain TECHNIQUE: Imaging performed through the abdomen and pelvis. Coronal and sagittal reformats are submi tted. All CT scans at [facility] use at least one of these dose optimization techniques: auto mated exposure control; mA and/or kV adjustment per patient size (includes targeted exams where dose is matched to clinical indication); or iterative reconstruction. DLP: 1324.88 mGy.cm COMPARISON: None available. Lower thorax: Dependent changes at the lung bases. More dense consolidation at the RIGHT lung base. A dditional mild tree-in-bud airspace disease at the lung bases including the RIGHT middle lobe. Very s mall RIGHT pleural effusion. Liver: Mild hepatic steatosis. Gallbladder: Normal gallbladder. No pericholecystic fluid or cholelithiasis. No gallbladder wall thic kening. Pancreas: Normal size and attenuation. Normal pancreatic duct. No pancreatitis or mass. Spleen: Normal. Adrenal glands: Normal. No mass. Right kidney: Normal size kidney with no mass or hydronephrosis. Left kidney: Normal size kidney with no mass or hydronephrosis. Aorta: Normal abdominal aorta, no aneurysm or atherosclerosis. No free fluid, intraperitoneal air or significant lymphadenopathy. GI tract: Normal noncontrast imaging of the stomach, small bowel and colon. No obstruction or wall th ickening. Normal appendix. Abdominal wall: Small umbilical hernia contains fat only. Pelvis: Prior hysterectomy. Negative urinary bladder. No adenopathy. Osseous structures: Advanced degenerative facet disease at L4-5 and L5-S1. CT/CT abdomen pelvis wo con [id number] IMPRESSION: 1. No renal obstruction or hydronephrosis. No calcifications. 2. No appendicitis. The appendix is very difficult to visualize but there are no secondary findings of appendicitis. 3. Bibasilar areas of consolidation with a small RIGHT pleural effusion. 4. Additional tree-in-bud airspace disease at the lung bases consistent with e ndobronchial pneumonia. 5. Prior hysterectomy. 6. Negative gallbladder.
[2023-11-25 09:15] LABS: Basophils % 0.2 %; Eosinophils # 0.4 10^3/uL (0.0-0.8); Eosinophils % 3.5 %; Hematocrit 41.7 % (36-47); Lymphocytes # 1.7 10^3/uL (0.8-4.8); Mean Corpuscular HGB Conc 34.1 g/dL (30-55); Mean Corpuscular Hemoglobin 31.7 pg (27-33); Mean Corpuscular Volume 93.1 fl (85-98); Mean Platelet Volume 8.7 fL (7.4-10.4); Monocytes # 0.7 10^3/uL (0.2-0.9); Monocytes % 6.4 %; Neutrophils # 8.36 10^3/uL (1.8-7.7); Neutrophils % 74.1 %; Nucleated Red Blood Cells % 0 %; Platelet Count 247 10^3/cmm (157-399); Red Blood Count 4.48 10^6/uL (3.85-5.65); Red Cell Distribution Width 12.3 % (12.1-15.1); White Blood Count 11.27 10^3/uL (3.29-11.43)
[2023-11-25 09:32] LABS: Alanine Aminotransferase 32 U/L (0-33); Alkaline Phosphatase 68 U/L (35-105); Anion Gap 16.3 (5-19); Aspartate Amino Transferase 15 U/L (0-32); Blood Urea Nitrogen 8 mg/dL (8-23); Calcium 9.7 mg/dL (8.5-10.5); Carbon Dioxide 21 mmol/L (22-29); Chloride 103 mmol/L (98-107); Creatinine Clr Calc Pharmacy 142.9391; Globulin 3.5 g/dL (1.3-4.6); Glucose 126 mg/dL (65-115); Lipase 26 U/L (13-60); Osmolality Calculated 282 mOsm/kg (285-295); Potassium 4.3 mmol/L (3.5-5.1); Sodium 136 mmol/L (136-145); Total Bilirubin 1.4 mg/dL (0.15-1.2); Total Protein 7.5 g/dL (6.6-8.7)
[2023-11-25 10:13] LABS: Charge for UA Resulting for Rev
[2023-11-25 10:20] LABS: Bilirubin Urine 1+ (Negative); Blood Urine Negative (Negative); Glucose Urine UA Negative (Normal); Ketones Urine Trace (Negative); Leukocyte Esterase Urine 2+ (Negative); Nitrate Urine Negative (Negative); Protein Urine Trace (Negative); Specific Gravity, Urine 1.022 (1.005-1.030); Urine Appearance Turbid (CLEAR); pH Urine 5.5 (5-7)
--- NOTE | 2023-11-25 10:20 | XR_ITS ---
WS: [id number] Examination: XR chest 1V portable [id number] Reason for Exam: dyspnea/cough Date: 11/25/2023 Comparison: 11/13/2023 Findings: The heart is enlarged. Linear atelectasis or minimal infiltrate is identified. There is no edema or large effusion. XR/XR chest 1V portable [id number] Impression: There is cardiomegaly without failure Minimal linear atelectasis or infiltrate is noted.
[2023-11-25] MEDS: sodium chloride 0.9% 1,000 ML 999 ML IV (10:28)
[2023-11-25] MEDS: ondansetron 2 mg/ML SDV 2 mL 4 MG IVP (10:30)
[2023-11-25] MEDS: ketorolac 30 mg/mL INJ IVP (10:32)
[2023-11-25 10:39] LABS: UA Manual Slide Review YES; Urine Color Orange (Yellow)
[2023-11-25 10:40] LABS: Add Urine Culture? No; Bacteria Urine 2+ /hpf; Squamous Epithelial Cell Urine 25-40 /hpf (0-5)
[2023-11-25 11:37] VITALS: BP 134/76; PULSE 76; O2SAT 96
== END 2023-11-25 11:30 | disposition home or self-care (01) ==
PROVIDERS: Emergency Provider Family Medicine
DX: R07.81 Pleurodynia (principal); J18.9 Pneumonia, unspecified organism; Z87.891 Personal history of nicotine dependence
CPT/HCPCS: 36415; 71045; 74176; 80053; 81003; 81015; 83690; 83735; 85025; 96361; 96374; 96375; 99285; J1885; J2405; J7030

== ENCOUNTER 2024-05-21 08:04 | Emergency (ER) | payer MEDICAID, SELFPAY ==
[2024-05-21 08:22] VITALS: BP 141/83; PULSE 68; RESP 17; TEMP 36.7; O2SAT 97; BMI 53.2
--- NOTE | 2024-05-21 09:20 | XR_ITS ---
WS: [id number] XR chest 1V portable [id number] REASON FOR EXAM: dyspnea/cough FINDINGS: Mild tortuosity of the thoracic aorta. Heart size is at the upper limits of normal. Calcified granulomas disease in both hemithoraces. No acute pulmonary parenchymal or pleural abnormality. The chest is unchanged compared to 11/13/2023. XR/XR chest 1V portable [id number] IMPRESSION: No acute chest abnormality.
[2024-05-21 10:38] VITALS: BP 147/81; PULSE 61; RESP 18; O2SAT 96
--- NOTE | 2024-05-21 10:56 | W.ED.SOB ---
HPI - SOB/Dyspnea General: Chief Complaint: Shortness of Breath/Dyspnea Stated Complaint: Sob Time Seen by Provider: 05/21/24 09:19 History of Present Illness: HPI Narrative: 58-year-old female presents emergency room complaining of intermittent chest pain and discomfort along with shortness of breath for the last 2-1/2 months. She has not had any fever sweats or chills no productive cough no hemoptysis. No dysuria urgency or frequency. She has not noticed anything that exacerbates or relieves it. She has no known history of coronary artery disease. Associated symptoms: Deny abdominal pain, chest pain or fever(s) Related Data Home Medications ?Medication ?Instructions ?Recorded ?Confirmed albuterol sulfate 90 mcg/actuation 1 puff inhalation Q4H PRN Wheezing 11/25/23 05/21/24 aerosol inhaler (Ventolin HFA) cholecalciferol (vitamin D3) 125 125 mcg PO DAILY 05/21/24 05/21/24 mcg (5,000 unit) tablet (Vitamin D3) Allergies Allergy/AdvReac Type Severity Reaction Status Date / Time acetaminophen (From Tylenol) Allergy Mild rash Verified 11/13/23 11:53 Review of Systems Const: Denies: fever(s) or chills Card: Denies: chest pain Resp: Reports: dyspnea GI: Denies: abdominal pain : Denies: dysuria, urinary frequency or urinary urgency Musc: Denies: neck pain or back pain Skin/Breast: Denies: rash PFSH ED PFSH: Medical History Genital atrophy of female Cystocele with rectocele Surgical repair-2020 Incomplete bladder emptying Surgical History H/O: hysterectomy 1984 History of tonsillectomy Bilateral dissection tonsillectomy History of bilateral tubal ligation H/O arthroscopy Revision arthroscopic autograft ligament replacement History of bladder surgery Family History Father , at age 54 Sedentary lifestyle Mother Healthy adult Social History Smoking and tobacco/nicotine status: former use of tobacco/nicotine Alcohol intake: current Alcohol intake frequency: holidays/special occasions only Alcohol type: beer Substance/Drug Use: never Marital status: Current occupational status: disabled Physical Exam Const: COMMON NORMALS: no acute distress GENERAL APPEARANCE: cooperative and comfortable ORIENTATION/CONSCIOUSNESS: Yes awake, Yes oriented to person, Yes oriented to place and Yes oriented to time HENMT: COMMON NORMALS: normocephalic, atraumatic and hearing grossly normal bilaterally HEAD & SCALP: normocephalic and atraumatic Resp: COMMON NORMALS: normal respiratory effort, No retractions, No use of accessory muscles and clear to auscultation bilaterally AUSCULTATION: clear to auscultation bilaterally Cardio: COMMON NORMALS: regular rate, regular rhythm and No murmurs present (Cardio) RATE: regular rate RHYTHM: regular rhythm GI: COMMON NORMALS: Soft to palpation and No hepatosplenomegaly present AUSCULTATION: Yes normoactive bowel sounds PALPATION: Yes Soft to palpation, No Tenderness to palpation present (GI), No Guarding due to palpation present (GI) and Yes No hepatosplenomegaly present Extremity: COMMON NORMALS: normal to inspection, capillary refill normal, no clubbing, cyanosis or edema, no calf tenderness and no pedal edema Neuro: SENSORIUM/ORIENTATION: Yes oriented to person, Yes oriented to place and Yes oriented to time Skin: COMMON NORMALS: no rashes or lesions noted GENERAL SKIN EXAM: no rashes or lesions noted Course Vital Signs: Vital signs: Vital Signs Temperature 98.1 F 05/21/24 08:22 Pulse Rate 63 05/21/24 13:55 Respiratory Rate 16 05/21/24 13:54 Blood Pressure 156/93 05/21/24 13:55 Pulse Oximetry 97 05/21/24 13:55 Oxygen Delivery Me thod Room Air 05/21/24 12:36 MDM - SOB/Dyspnea Medical Decision Making Imaging shows large goiter with thyroid mass extending into the mediastinum. Will discharge patient home and set her up for outpatient follow-up. Acute coronary syndrome ruled out troponin is negative EKG did not show any acute changes Lab Data 05/21/24 11:01 05/21/24 11:01 Labs/Radiology: Radiology Impressions Chest X-Ray 05/21/24 09:20 IMPRESSION: No acute chest abnormality. Chest CTA 05/21/24 10:59 IMPRESSION: 1. No pulmonary embolism. 2. No pneumonia. 3. Large soft tissue mass in the LEFT neck is most likely a thyroid goiter. Mass measures 4.4 x 4.8 cm and extends over a length of 6.7 cm. Mass extends substernal into the upper thorax with displacement of the trachea. Recommend follow-up ultrasound evaluation. This can be done on a nonurgent basis. 4. Hepatic steatosis. Laboratory Results WBC 7.83 10^3/uL (3.29-11.43) 05/21/24 11:01 RBC 4.87 10^6/uL (3.85-5.65) 05/21/24 11:01 Hgb 15.30 g/dL (11.27-16.99) 05/21/24 11:01 Hct 46.1 % (36-47) 05/21/24 11:01 MCV 94.7 fl (85-98) 05/21/24 11:01 MCH 31.4 pg (27-33) 05/21/24 11:01 MCHC 33.2 g/dL (30-55) 05/21/24 11:01 RDW 12.7 % (12.1-15.1) 05/21/24 11:01 Plt Count 234 10^3/cmm (157-399) 05/21/24 11:01 MPV 8.8 fL (7.4-10.4) 05/21/24 11:01 Neut % (Auto) 47.3 % 05/21/24 11:01 Lymph % (Auto) 33.0 % 05/21/24 11:01 [place] % (Auto) 6.1 % 05/21/24 11:01 Eos % (Auto) 12.5 % 05/21/24 11:01 Baso % (Auto) 0.6 % 05/21/24 11:01 Neut # (Auto) 3.70 10^3/uL (1.8-7.7) 05/21/24 11:01 Lymph # (Auto) 2.6 10^3/uL (0.8-4.8) 05/21/24 11:01 [place] # (Auto) 0.5 10^3/uL (0.2-0.9) 05/21/24 11:01 Eos # (Auto) 1.0 10^3/uL (0.0-0.8) H 05/21/24 11:01 Baso # (Auto) 0.1 10^3/uL (0.0-0.1) 05/21/24 11:01 Nucleated RBC % (auto) 0 % 05/21/24 11:01 Nucleated RBCs # 0.0 /100WBC 05/21/24 11:01 Sodium 137 mmol/L (136-145) 05/21/24 11:01 Potassium 4.1 mmol/L (3.5-5.1) 05/21/24 11:01 Chloride 103 mmol/L (98-107) 05/21/24 11:01 Carbon Dioxide 26 mmol/L (22-29) 05/21/24 11:01 Anion Gap 12.1 (5-19) 05/21/24 11:01 BUN 16 mg/dL (8-23) 05/21/24 11:01 Creatinine 0.7 mg/dL (0.5-0.9) 05/21/24 11:01 GFR Calculation 85.4 mL/min (90-130) L 05/21/24 11:01 Glucose 94 mg/dL (65-115) 05/21/24 11:01 Calculated Osmolality 285 mOsm/kg (285-295) 05/21/24 11:01 Calcium 10.6 mg/dL (8.5-10.5) H 05/21/24 11:01 Total Bilirubin 0.5 mg/dL (0.15-1.2) 05/21/24 11:01 AST 15 U/L (0-32) 05/21/24 11:01 ALT 15 U/L (0-33) 05/21/24 11:01 Alkaline Phosphatase 94 U/L (35-105) 05/21/24 11:01 Total Protein 6.9 g/dL (6.6-8.7) 05/21/24 11:01 Albumin 4.0 g/dL (3.5-5.2) 05/21/24 11:01 Globulin 2.9 g/dL (1.3-4.6) 05/21/24 11:01 Lipase 33 U/L (13-60) 05/21/24 11:01 TSH 1.00 uIU/mL (0.27-4.20) 05/21/24 11:01 Free T4 1.01 ng/dL (0.82-1.77) 05/21/24 11:01 All radiology interpretation(s) finalized by discharge Discharge Plan Discharge Patient Disposition: Home Clinical Impression: Thyroid mass of unclear etiology Condition: Stable Prescriptions: No Action albuterol sulfate [Ventolin HFA] 90 mcg/actuation HFA aerosol inhaler 1 puff INHALATION Q4H PRN (Reason: Wheezing) cholecalciferol (vitamin D3) [Vitamin D3] 125 mcg (5,000 unit) Tablet 125 mcg PO DAILY Discharge Orders: Discharge ED (Routine); Ordered 05/21/24 Ordered By: Bam Ramon Discharge Diet: Usual diet Discharge Activity: Resume usual activity Patient Instructions: Opioid Safety, Pain Management Activity Restrictions/Additional Instructions: Thank you for choosing [facility] for your healthcare needs today. It is very important that you follow up as instructed or that you return to the Emergency Department should you have concerns or if your condition changes or worsens in any way. You were seen in the emergency room with complaint of sensation of shortness of breath your laboratory tests and imaging did not show a specific cause for shortness of breath there is no signs of infection there is no pulmonary embolism or pneumonia. However you do have a rather large thyroid mass. This does abut up against the trachea. Will set you up for an ultrasound of your thyroid and to follow-up with the auger machine offbearer to further evaluate. 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
--- NOTE | 2024-05-21 10:59 | CT_ITS ---
WS: [id number] CT CHEST ANGIOGRAPHY WITH REFORMATS HISTORY: Chronic chest pain with shortness of breath TECHNIQUE: Contiguous axial images are obtained through the chest during arterial injection of intravenous contrast. Images are reconstructed to evaluate the pulmonary arteries. MIP imaging also reviewed. All CT scans at [facility] use at least one of these dose optimization techniques: automated exposure control; mA and/or kV adjustment per patient size (includes targeted exams where dose is matched to clinical indication); or iterative reconstruction. CONTRAST: Omnipaque 350; 100 mL IV. DLP: 516.35 mGy.cm COMPARISON: None available. Good opacification of the pulmonary artery. No pulmonary embolism or filling defects. Beyond the segmental branches the opacification becomes limited. No RIGHT heart strain. Normal size heart. Minimal atherosclerosis aorta with no dilatation. No mediastinal or hilar adenopathy. Lungs are clear. No pneumonia. No pericardial or pleural effusions. There is a large mass incompletely visualized in the LEFT neck which extends substernal and displaces the trachea to the RIGHT of midline. Mass extends posterior to the trachea. This mass measures at least 6.7 cm in length by 4.4 x 4.8 cm. This is most likely a large thyroid goiter. Small hiatal hernia. Mild hepatic steatosis. No adrenal mass. Negative gallbladder is visualized. Mild increase in thoracic kyphosis. CT/CT angio chest PE protcl [id number] IMPRESSION: 1. No pulmonary embolism. 2. No pneumonia. 3. Large soft tissue mass in the LEFT neck is most likely a thyroid goiter. Ma ss measures 4.4 x 4.8 cm and extends over a length of 6.7 cm. Mass extends subs ternal into the upper thorax with displacement of the trachea. Recommend follow -up ultrasound evaluation. This can be done on a nonurgent basis. 4. Hepatic steatosis.
[2024-05-21 11:09] LABS: Basophils # 0.1 10^3/uL (0.0-0.1); Basophils % 0.6 %; Eosinophils % 12.5 %; Hematocrit 46.1 % (36-47); Lymphocytes # 2.6 10^3/uL (0.8-4.8); Mean Corpuscular HGB Conc 33.2 g/dL (30-55); Mean Corpuscular Hemoglobin 31.4 pg (27-33); Mean Corpuscular Volume 94.7 fl (85-98); Mean Platelet Volume 8.8 fL (7.4-10.4); Monocytes # 0.5 10^3/uL (0.2-0.9); Monocytes % 6.1 %; Neutrophils % 47.3 %; Nucleated Red Blood Cells % 0 %; Platelet Count 234 10^3/cmm (157-399); Red Blood Count 4.87 10^6/uL (3.85-5.65); Red Cell Distribution Width 12.7 % (12.1-15.1); White Blood Count 7.83 10^3/uL (3.29-11.43)
[2024-05-21 11:24] LABS: Alanine Aminotransferase 15 U/L (0-33); Alkaline Phosphatase 94 U/L (35-105); Anion Gap 12.1 (5-19); Aspartate Amino Transferase 15 U/L (0-32); Blood Urea Nitrogen 16 mg/dL (8-23); Calcium 10.6 mg/dL (8.5-10.5); Carbon Dioxide 26 mmol/L (22-29); Chloride 103 mmol/L (98-107); Creatinine Clr Calc Pharmacy 124.4778; Globulin 2.9 g/dL (1.3-4.6); Glomerular Filtration Rate 85.4 mL/min (90-130); Glucose 94 mg/dL (65-115); Lipase 33 U/L (13-60); Osmolality Calculated 285 mOsm/kg (285-295); Potassium 4.1 mmol/L (3.5-5.1); Sodium 137 mmol/L (136-145); Total Bilirubin 0.5 mg/dL (0.15-1.2); Total Protein 6.9 g/dL (6.6-8.7)
[2024-05-21] MEDS: iohexol 350 mg/mL 500 mL Btl (per mL) IV (11:45)
[2024-05-21 12:36] VITALS: BP 143/75; PULSE 60; RESP 16; O2SAT 100
[2024-05-21 13:54] VITALS: BP 156/93; PULSE 62; RESP 16; O2SAT 96
[2024-05-21 13:55] VITALS: BP 156/93; PULSE 63; O2SAT 97
[2024-05-21 14:16] LABS: Free T4 Free Thyroxine 1.01 ng/dL (0.82-1.77)
--- NOTE | 2024-05-25 13:34 | DCPLANNER ---
faxed outpatient us order to scheduling
== END 2024-05-21 13:57 | disposition home or self-care (01) ==
PROVIDERS: Emergency Provider Family Medicine
DX: E07.89 Other specified disorders of thyroid (principal); Z87.891 Personal history of nicotine dependence
CPT/HCPCS: 36415; 71045; 71275; 80053; 83690; 84439; 84443; 85025; 99285

== ENCOUNTER 2024-06-08 14:39 | Outpatient (CLI) | payer MEDICAID, SELFPAY ==
--- NOTE | 2024-06-08 14:40 | USR_ITS ---
PROCEDURE INFORMATION: Exam: US Soft Tissue Head and Neck, Thyroid Exam date and time: 06/08/2024 2:55 PM Age: 58 years old Clinical indication: Mass, lump, or swelling in neck; Left; Additional info: L thyroid mass TECHNIQUE: Imaging protocol: Real-time ultrasound scan of the neck with image documentation. Exam focused on the thyroid. COMPARISON: CT angio chest PE protcl [id number] 05/21/2024 11:40 AM FINDINGS: Right thyroid lobe: 4 x 1.6 x 1.4 cm. Mildly heterogeneous parenchyma. Isoechoic TI-RADS 3 nodule measuring 1.3 x 0.9 x 0.8 cm. Left thyroid lobe: 8.6 x 4.1 x 5.2 cm with very heterogeneous appearance of the parenchyma. Isoechoic TI-RADS 3 nodule measuring 6.3 x 4.3 x 4.3 cm. Isoechoic TI-RADS 3 nodule measuring 2.4 x 2 x 1.4 cm. Isthmus: 0.2 cm in thickness. Heterogeneous parenchyma. Salivary glands: The visualized submandibular salivary glands are unremarkable. US/US thyroid [id number] IMPRESSION: Heterogeneous thyroid with significant enlargement of the left lobe due to dominant 6.3 cm TI-RADS 3 nodule and additional 2.4 cm TI-RADS 3 nodule. Fine-needle aspiration sampling recommended if not already performed.
== END 2024-06-08 14:40 | disposition home or self-care (01) ==
PROVIDERS: Visit Provider Family Medicine
DX: E04.2 Nontoxic multinodular goiter (principal)
CPT/HCPCS: 76536

== ENCOUNTER → 2024-06-19 10:04 | Outpatient (BNVA) | payer MEDICAID, SELFPAY | PROVIDERS: PCP Family Medicine; Visit Provider Family Medicine | DX: E83.52 Hypercalcemia (principal); Z13.6 Encounter for screening for cardiovascular disorders | CPT/HCPCS: 80061; 82306; 82310; 83970 ==

== ENCOUNTER 2024-07-12 12:35 | Outpatient (CLI) | payer MEDICAID, SELFPAY ==
--- NOTE | 2024-07-12 12:45 | US_ITS ---
WS: [id number] THYROID ULTRASOUND, limited HISTORY: thryoid goiter COMPARISON: None available. Patient presents for possible biopsy of a large LEFT thyroid goiter. There are multiple contiguous nodules. There is marked increased vascularity surrounding the nodule. After explaining procedure and the details and the risks of the patient's including bleeding due to the increased vascularity patient has elected not to proceed with this procedure at this time. Marked enlargement of the thyroid and no focal discrete mass this is probably a goiter. This may be causing the patient's symptoms of difficulty swallowing and breathing. Consider surgical evaluation. US/US thyroid [id number] IMPRESSION: 1. Thyroid biopsy will be not performed today due to the prominent vessels kenneth rounding the enlarged thyroid. This is most typical for a goiter. This may be c ausing some symptoms as difficulty swallowing due to its large size. Surgical e xcision may be an option. 2. Patient has elected not to continue with the biopsy today and discuss possi ble surgical options by ENT with her physician.
== END 2024-07-12 12:36 | disposition home or self-care (01) ==
LOC: RAD 12:36
PROVIDERS: PCP Family Medicine; Visit Provider Family Medicine
DX: E04.2 Nontoxic multinodular goiter (principal)
CPT/HCPCS: 10005; 76536

== ENCOUNTER → 2024-07-30 10:16 | Outpatient (BNVA) | payer MEDICAID, SELFPAY | PROVIDERS: PCP Family Medicine; Visit Provider Internal Medicine | DX: E04.1 Nontoxic single thyroid nodule (principal); E21.0 Primary hyperparathyroidism; E04.9 Nontoxic goiter, unspecified; Z13.6 Encounter for screening for cardiovascular disorders; E55.9 Vitamin D deficiency, unspecified; Z76.89 Persons encountering health services in other specified circumstances; F17.219 Nicotine dependence, cigarettes, with unspecified nicotine-induced disorders; Z71.6 Tobacco abuse counseling | CPT/HCPCS: 99204 ==

== ENCOUNTER 2024-08-09 09:18 | Outpatient (CLI) | payer MEDICAID, SELFPAY ==
--- NOTE | 2024-08-09 09:22 | CT_ITS ---
WS: [id number] CT NECK TECHNIQUE: Contrast-enhanced CT of the neck with coronal and sagittal reformatted images. CLINICAL INFORMATION: THYROID NODULE COMPARISON: None. DLP: 281.[address] scans at [facility] use at least one of these dose optimization techniques: automated exposure control; mA and/or kV adjustment per patient size (includes targeted exams where dose is matched to clinical indication); or iterative reconstruction. FINDINGS: Large masslike LEFT thyroid goiter with LEFT to RIGHT deviation of the trachea. No significant tracheal narrowing. Heterogeneous dominant LEFT thyroid goiter extends into the LEFT anterior superior mediastinum. Dominant nodule measures approximately 7.0 x 3.9 cm. A few small RIGHT thyroid nodules. Nodular goiter also involves the isthmus.The large LEFT thyroid nodule laterally displaces the LEFT common carotid artery. Mild mass effect and narrowing of the LEFT common carotid artery just distal to the origin which remains patent. Mastoid air cells and paranasal sinuses are well aerated. Parotid glands are normal. Normal submandibular glands. Normal posterior nasopharynx and parapharyngeal fat. No evidence of supraglottic or glottic mass. Subglottic airway is patent. Retropharyngeal course to the RIGHT greater than LEFT cervical ICA. Moderate spondylitic changes cervical spine. CT/CT neck w con* [id number] IMPRESSION: 1. LEFT thyroid goiter with dominant nodule measuring 7.0 x 3.9 cm extending i nto the anterior superior mediastinum described above. 2. LEFT RIGHT mass effect on the trachea without significant narrowing. 3. No cervical lymphadenopathy.
[2024-08-09 09:53] LABS: Blood Urea Nitrogen 18 mg/dL (8-23); Glomerular Filtration Rate 73.2 mL/min (90-130)
[2024-08-09] MEDS: iohexol 350 mg/mL 500 mL Btl (per mL) IV (10:08)
== END 2024-08-09 09:19 | disposition home or self-care (01) ==
LOC: RAD 09:20
PROVIDERS: PCP Family Medicine; Visit Provider Specialist
DX: E04.1 Nontoxic single thyroid nodule (principal); R93.89 Abnormal findings on diagnostic imaging of other specified body structures; J39.8 Other specified diseases of upper respiratory tract; M47.892 Other spondylosis, cervical region
CPT/HCPCS: 70491; 82565; 84520

== ENCOUNTER → 2024-08-29 12:58 | Outpatient (BNVA) | payer MEDICAID, SELFPAY | PROVIDERS: PCP Family Medicine; Visit Provider Internal Medicine | DX: I10 Essential (primary) hypertension (principal); F17.210 Nicotine dependence, cigarettes, uncomplicated | CPT/HCPCS: 99214 ==

== ENCOUNTER 2025-03-17 08:47 | Emergency (ER) | payer MEDICAID, SELFPAY ==
--- OUTSIDE RECORDS SUMMARY | 2025-03-17 08:53 | XMS_ITS | Clinical Summary ---
Author Organization [facility] Address [address] [place] [address] Phone Care Team Providers Care Napper Runner Name Role Phone Homa Vincent Primary Care Provider Allergies Active Allergy Reactions Criticality Noted Date Comments Tylenol Extended Release Itching Low 10/12/2023 Medications nebulizerIndicat ions:Environment al and seasonal allergies,Mild intermittent reactive airway disease without complication Length of need 99 months Nebulizer with compressor, Kit: Permanent Nebulizer Kit, 1 per 6 months, filters , areosol mask: No. Name of Medication: Duoneb 1 Each Active Additional Information Patient not taking.Reported on 05/28/2024 ipratropium-albu teroL (DUONEB) 0.5 mg-3 mg(2.5 mg base)/3 mL Solution for NebulizationIndi cations:Environm ental and seasonal allergies,Mild intermittent reactive airway disease without complication Take 3 mL by inhalation every 6 hours as needed for Shortness of Breath. 90 Each 3 4 Active Additional Information Patient not taking.Reported on 05/28/2024 Ventolin HFA 90 mcg/actuation inhalerIndicatio ns:Mild intermittent reactive airway disease with acute exacerbation Take 2 Puffs by inhalation every 4 hours as needed for Shortness of Breath. 8.5 Gram 3 5 Active Additional Information Patient not taking.Reported on 05/28/2024 predniSONE (DELTASONE) 10 mg tabletIndication s:Mild intermittent reactive airway disease with acute exacerbation Take 3 tablet once per day for 3 days, then 2 tabs once per day for 3 days, then 1 tab once per day for 3 days 18 Tablet Active Additional Information Patient not taking.Reported on 05/28/2024 Active Problems Problem Noted Date Diagnosed Date Prediabetes 11/28/2023 Heart murmur 11/24/2023 Morbid obesity with body mass index (BMI) of 40. 0 or higher 11/24/2023 Acute dysfunction of both eustachian tubes 11/23 Environmental and seasonal allergies 11/24/2023 Absence of uterine cervix 11/24/2023 Hypercalcemia 11/24/2023 Resolved Problems Problem Noted Date Diagnosed Date Resolved Date Reactive airway disease 11/24/202311/19 Encounters Date Type Department Care Team Description 03/05/2025 External Device Data [facility] ABSTRACTION Provider, Abstract 02/05/2025 External Device Data [facility] ABSTRACTION Provider, Abstract 02/05/2025 External Device Data [facility]STRACTION Provider, Abstract 01/22/2025 External Device Data [facility]STRACTION Provider, Abstract 01/15/2025 External Device Data [facility] ABSTRACTION Provider, Abstract 12/25/2024 External Device Data [facility] ABSTRACTION Provider, Abstract from Last 3 Months Social History Tobacco Use Types Packs/Day Years Used Date Smoking Tobacco: Former Cigarettes 0 Q uit: 05/2023 Passive Smoke Exposure: Past Smokeless Tobacco: Never Tobacco Cessation:Counseling Given: No Alcohol Use Standard Drinks/Week Comments Not Currently 0 (1 standard drink = 0.6 oz pur e alcohol) Feeling Safe Answer Date Recorded Are you in a relationship wi th someone who hurts you emotionally and/or physically? No 10/12/2023 Comments No Sex and Gender Information Value Date Recorded Sex Assigned at Not on file Legal Sex Female 3:57 AM CDT Gender Identity Not on file Sexual Orientation Not on file Last Filed Vital Signs Vital Sign Reading Time Taken Comments Blood Pressure 132/84 05/28/2024 9:04 AM CDT Pulse 85 05/28/2024 9:04 AM CDT Temperature 36.7 C (98.1 F) 05/28/2024 9:04 AM CDT Respiratory Rate 18 05/28/2024 9:04 AM CDT Oxygen Saturation 96% 05/28/2024 9:04 AM CDT Inhaled Oxygen Concentration - - Weight 147 kg (324 lb) 05/28/2024 9:04 AM CDT Height 165.1 cm (5' 5 ) 05/28/2024 9:04 AM CDT Body Mass Index 53.92 05/28/2024 9:04 AM CDT Plan of Treatment Health Maintenance Due Date Last Done Comments DTAP/TDAP/TD VACCINES (1 - Tdap) 08/23/1982 Preventative Visit-Managed Medicaid 08/23/1982 BREAST CANCER SCREENING 2003 COLORECTAL SCREENING 08/23/2008 Colorectal Cancer Screening 08/23/2008 FIT-DNA Q 3 years 08/23/2008 FIT/FOBT Q 1 year 08/23/2008 Flex Sig/CT Colonography Q 5 years 08/23/2008 RSV VACCINE (60+ or ) (1 - Risk 50-74 years 1-dose series) 08/23/2013 ZOSTER VACCINE (1 of 2) 08/23/2013 INFLUENZA VACCINE (#1) 2024 Pre-Diabetes and Diabetes Screening 11/23/202611/23 Procedures Procedure Name Priority Date/Time Associated Diagnosis Comments HEMOGLOBIN A1C Routine 11/24/2023 10:53 AM CDT Encounter to establish care with new doctor Morbid obesity with body mass index (BMI) of 40.0 or higher ([facility]) from Last 3 Months or Most Recently Relevant to Health Maintenance Results * (ABNORMAL) HEMOGLOBIN A1C (11/24/2023 10:53 AM CDT) HEMOGLOBIN A1C 5.8(H) <5.7 % of total Hgb [facility] Comment: For someone without known diabetes, a hemoglobin A1c value between 5.7% and 6.4% is consistent with prediabetes and should be confirmed with a follow-up test. For someone with known diabetes, a value <7% indicates that their diabetes is well controlled. A1c targets should be individualized based on duration of diabetes, age, comorbid conditions, and other considerations. This assay result is consistent with an increased risk of diabetes. Currently, no consensus exists regarding use of hemoglobin A1c for diagnosis of diabetes for children. ESTIMATED AVERAGE GLUCOSE (MG/DL) 120 mg/dL [facility] ESTIMATED AVERAGE GLUCOSE (MMOL/L) 6.6 mmol/L [facility] Comment: This test was performed on the Ash[employer] merced c503 platform. Effective 06/06/23, a change in test platforms from the [employer] to the [employer] merced c503 may have shifted HbA1c results compared to historical results. Based on laboratory validation testing conducted at [facility], the [employer] platform relative to the [employer] platform had an average increase in HbA1c value of < or = 0.3%. This difference is within accepted variability established by the National Glycohemoglobin Standardization Program. Note that not all individuals will have had a shift in their results and direct comparisons between historical and current results for testing conducted on different platforms is not recommended. FASTING:YES FASTING: YES Test Performed at: [facility] [id number] [id number] Kerry Ochoa MD Blood 11/24/2023 10:5 3 AM CDT 11/24/2023 10:54 AM CDT Ricardo Souza SIEVE GRADER TENDER CHEMISTRY ORDERABLES Final Result [facility] [phone] [facility] [address] [address] [place] [address] from Last 3 Months or Most Recently Relevant to Health Maintenance Insurance [place] Care Teams Napper Runner Relationship Specialty Start Date End Date Homa Vincent DO [address] [place] [address] PCP - General Family Practice 11/24/23
--- NOTE | 2025-03-17 08:57 | XRR_ITS ---
PROCEDURE INFORMATION: Exam: XR Chest Exam date and time: 03/17/2025 09:52 AM Age: 59 years old Clinical indication: Cough; Additional info: Cough; HX pneumonia TECHNIQUE: Imaging protocol: Radiologic exam of the chest. Views: 1 view. COMPARISON: CT angio chest PE protcl [id number] 05/21/2024 11:40 AM FINDINGS: Lungs: Low lung volumes. No consolidation. Pleural spaces: Unremarkable. No pleural effusion. No pneumothorax. Heart/Mediastinum: Unremarkable. No cardiomegaly. Bones/joints: Degenerative changes of the spine.. Other findings: Patient rotation to the right. XR/XR chest 1V portable [id number] IMPRESSION: No acute findings. Low lung volumes.
[2025-03-17 09:09] VITALS: BP 142/84; PULSE 83; TEMP 37.8; O2SAT 93
--- NOTE | 2025-03-17 09:44 | ED_ITS ---
HPI - URI/Sore Throat 2 General: Chief Complaint: Upper Respiratory Infection Stated Complaint: n/f/d, cough, sob Time Seen by Provider: 03/17/25 09:32 Source: patient Mode of arrival: ambulatory Limitations: no limitations History of Present Illness: 59-year-old female states her last 5-6 T atian of having cough congestion along with bodyaches and chills. She denies any fever has had some mild dyspnea. She denies any worse or improving factors she denies any chest pain. Denies any vomiting. Does have a temp here 100.1 Related Data Previous Rx's ?Medication ?Instructions ?Recorded mupirocin 2 % topical ointment 1 applic topical BID #2 2 grams 10/08/24 (Centany) albuterol sulfate 2.5 mg/3 mL 2.5 mg (3 mL) inhalation Q4H PRN 03/17/25 (0.083 %) solution for nebulization shortness of breat h or wheezing #90 mL cephalexin 500 mg capsule 500 mg PO TID 7 days #21 cap s 03/17/25 prednisone 50 mg tablet 50 mg PO DAILY #5 tabs 03/17 Allergies Allergy/AdvReac Type Severity Reaction Status Date / Time acetaminophen (From Tylenol) Allergy Mild rash Verified 03/17/25 09:16 EGGS Allergy Mild burning Uncoded 03/17/25 09:16 Review of Systems 2 Resp: Reports: non-productive cough PFSH ED 2 PFSH: Medical History (Updated 03/17/25 @ 10:43 by Vivi Brooks MD) Genital atrophy of female Cystocele with rectocele Surgical repair-2020 Incomplete bladder emptying Surgical History History of surgery on arm Left arm repair-2020 H/O: hysterectomy 1984 History of tonsillectomy Bilateral dissection tonsillectomy History of bilateral tubal ligation H/O arthroscopy Revision arthroscopic autograft ligament replacement - right ankle History of bladder surgery Family History Father , at age 54 Sedentary lifestyle Mother Healthy adult Social History Smoking and tobacco/nicotine status: current some day tobacco/nicotine user cigarettes Years cigarettes smoked: 2 Alcohol intake: current Alcohol intake frequency: holidays/special occasions only Alcohol type: beer Substance/Drug Use: never Marital status: Current occupational status: disabled Physical Exam 2 Const: COMMON NORMALS: no acute distress, patient oriented x3 and healthy appearing HENMT: COMMON NORMALS: normocephalic and atraumatic HEAD & SCALP: n ormocephalic and atraumatic Eye: COMMON NORMALS: conjunctivae normal CONJUNCTIVA: Yes conjunctivae normal Neck/C-Spine: COMMON NORMALS: full ROM and supple Chest: COMMONS NORMALS: normal inspection of the chest Resp: COMMON NORMALS: normal respiratory effort, No retractions, No use of accessory muscles and clear to auscultation bilaterally AUSCULTATION: clear to auscultation bilaterally Cardio: COMMON NORMALS: regular rate, regular rhythm and No murmurs present (Cardio) RATE: regular rate RHYTHM: regular rhythm Extremity: COMMON NORMALS: normal to inspection and full ROM Neuro: COMMON NORMALS: patient oriented x3, moves all extremities and no focal motor deficits Psych: COMMON NORMALS: mental status grossly normal, Normal thought process present and cooperative THOUGHT PROCESS: Normal thought process present Skin: COMMON NORMALS: no rashes or lesions noted and no wounds GENERAL SKIN EXAM: no rashes or lesions noted Course 2 Vital Signs: Vital signs: Vital Signs Temperature 100.1 F H 03/17/25 09:09 Pulse Rate 88 03/17/25 10:36 Respiratory Rate 18 03/17/25 09:45 Blood Pressure 168/94 03/17/25 10:36 Pulse Oximetry 88 L 03/17/25 10:36 Oxygen Delivery Me thod Nasal Cannula 03/17/25 09:45 MDM - URI/Sore Throat Medical Decision Making 59-year-old female presents with cough congestion low-grade fevers been going on for 5 days. Differential includes pneumonia, upper restaurant infection, pulm emboli. Patient has no chest pain she has no tachycardia here no signs of pulm emboli. Chest x-ray showed no pneumonia she did have some mild wheezing here blood work showed no significant abnormality she feels much improved after steroids and albuterol will prescribe her prednisone for home along with albuterol inhaler and Keflex she is to follow-up with PCP and return if worsening she understands agrees to plan. Medical Records I reviewed the patient's medical records. Lab Data I reviewed the patient's lab results. 03/17/25 09:48 03/17/25 09:48 Radiology Impressions Chest X-Ray 03/17/25 08:57 IMPRESSION: No acute findings. Low lung volumes. Laboratory Results WBC 7.23 10^3/uL (3.29-11.43) 03/17/25 09:48 RBC 4.50 10^6/uL (3.85-5.65) 03/17/25 09:48 Hgb 14.00 g/dL (11.27-16.99) 03/17/25 09:48 Hct 41.9 % (36-47) 03/17/25 09:48 MCV 93.1 fl (85-98) 03/17/25 09:48 MCH 31.1 pg (27-33) 03/17/25 09:48 MCHC 33.4 g/dL (30-55) 03/17/25 09:48 RDW 12.8 % (12.1-15.1) 03/17/25 09:48 Plt Count 192 10^3/cmm (157-399) 03/17/25 09:48 MPV 8.3 fL (7.4-10.4) 03/17/25 09:48 Neut % (Auto) 77.0 % 03/17/25 09:48 Lymph % (Auto) 10.9 % 03/17/25 09:48 Metcalfe % (Auto) 10.5 % 03/17/25 09:48 Eos % (Auto) 0.6 % 03/17/25 09:48 Baso % (Auto) 0.6 % 03/17/25 09:48 Neut # (Auto) 5.57 10^3/uL (1.8-7.7) 03/17/25 09:48 Lymph # (Auto) 0.8 10^3/uL (0.8-4.8) 03/17/25 09:48 Metcalfe # (Auto) 0.8 10^3/uL (0.2-0.9) 03/17/25 09:48 Eos # (Auto) 0.0 10^3/uL (0.0-0.8) 03/17/25 09:48 Baso # (Auto) 0.0 10^3/uL (0.0-0.1) 03/17/25 09:48 Nucleated RBC % (auto) 0 % 03/17/25 09:48 Nucleated RBCs # 0.0 /100WBC 03/17/25 09:48 Sodium 134 mmol/L (136-145) L 03/17/25 09:48 Potassium 4.1 mmol/L (3.5-5.1) 03/17/25 09:48 Chloride 99 mmol/L (98-107) 03/17/25 09:48 Carbon Dioxide 22 mmol/L (22-29) 03/17/25 09:48 Anion Gap 17.1 (5-19) 03/17/25 09:48 BUN 11 mg/dL (8-23) 03/17/25 09:48 Creatinine 0.9 mg/dL (0.5-0.9) 03/17/25 09:48 GFR Calculation 63.7 mL/min (90-130) L 03/17/25 09:48 Glucose 118 mg/dL (65-115) H 03/17/25 09:48 Calculated Osmolality 278 mOsm/kg (285-295) L 03/17/25 09:48 Calcium 10.4 mg/dL (8.5-10.5) 03/17/25 09:48 Total Bilirubin 0.8 mg/dL (0.15-1.2) 03/17/25 09:48 AST 42 U/L (0-32) H 03/17/25 09:48 ALT 24 U/L (0-33) 03/17/25 09:48 Alkaline Phosphatase 75 U/L (35-105) 03/17/25 09:48 Total Protein 7.2 g/dL (6.6-8.7) 03/17/25 09:48 Albumin 4.2 g/dL (3.5-5.2) 03/17/25 09:48 Globulin 3.0 g/dL (1.3-4.6) 03/17/25 09:48 Lipase 25 U/L (13-60) 03/17/25 09:48 TSH 1.10 uIU/mL (0.27-4.20) 03/17/25 09:48 Amorphous Sediment Not Reportable 03/17/25 10:32 All radiology interpretation(s) finalized by discharge Discharge Plan Discharge Patient Disposition: Home Clinical Impression: Bronchitis Condition: Stable Prescriptions: New albuterol sulfate 2.5 mg /3 mL (0.083 %) solution for nebulization 2.5 mg INHALATION Q4H PRN (Reason: shortness of breath or wheezing) Qty: 90 0RF cephalexin 500 mg capsule 500 mg PO TID 7 Days Qty: 21 0RF prednisone 50 mg tablet 50 mg PO DAILY Qty: 5 0RF No Action mupirocin [Centany] 2 % ointment 1 applic topical BID Qty: 22 0RF Discharge Orders: Discharge ED (Routine); Ordered 03/17/25 Ordered By: Vivi Brooks Referrals: Violet Henry DO [Primary Care Provider, Family Practice] - 4-7 days Discharge Diet: Advance as tolerated Discharge Activity: Resume usual activity Patient Instructions: Acute Bronchitis (ED) Print Language: Cambodian Coding Level of Care Code ED Licensed Weigher for Angela العراقي
[2025-03-17 09:45] VITALS: PULSE 81; RESP 18; O2SAT 91
[2025-03-17] MEDS: methylPREDNISolone sod succ 125 mg/2 mL INJ IVP (09:53)
[2025-03-17 09:55] LABS: Hematocrit 41.9 % (36-47); Hemoglobin 14.00 g/dL (11.27-16.99); Mean Corpuscular HGB Conc 33.4 g/dL (30-55); Mean Corpuscular Hemoglobin 31.1 pg (27-33); Mean Corpuscular Volume 93.1 fl (85-98); Nucleated Red Blood Cells % 0 %; Platelet Count 192 10^3/cmm (157-399); Red Blood Count 4.50 10^6/uL (3.85-5.65); White Blood Count 7.23 10^3/uL (3.29-11.43)
[2025-03-17 10:27] LABS: Alanine Aminotransferase 24 U/L (0-33); Albumin Level 4.2 g/dL (3.5-5.2); Alkaline Phosphatase 75 U/L (35-105); Anion Gap 17.1 (5-19); Aspartate Amino Transferase 42 U/L (0-32); Blood Urea Nitrogen 11 mg/dL (8-23); Calcium 10.4 mg/dL (8.5-10.5); Carbon Dioxide 22 mmol/L (22-29); Chloride 99 mmol/L (98-107); Globulin 3.0 g/dL (1.3-4.6); Glucose 118 mg/dL (65-115); Lipase 25 U/L (13-60); Osmolality Calculated 278 mOsm/kg (285-295); Potassium 4.1 mmol/L (3.5-5.1); Sodium 134 mmol/L (136-145); Thyroid Stimulating Hormone 1.10 uIU/mL (0.27-4.20); Total Protein 7.2 g/dL (6.6-8.7)
[2025-03-17 10:36] VITALS: BP 168/94; PULSE 88; O2SAT 88
[2025-03-17 10:40] LABS: Glucose Urine UA Negative (Normal); Nitrate Urine Negative (Negative); Specific Gravity, Urine 1.029 (1.005-1.030)
[2025-03-17 10:45] LABS: Add Urine Microscopic? YES
[2025-03-17 10:57] VITALS: BP 111/63; PULSE 95; O2SAT 93
== END 2025-03-17 10:59 | disposition home or self-care (01) ==
PROVIDERS: Emergency Provider Emergency Medicine; PCP Family Medicine
DX: J40 Bronchitis, not specified as acute or chronic (principal); F17.210 Nicotine dependence, cigarettes, uncomplicated
CPT/HCPCS: 71045; 80053; 81001; 83690; 84443; 85025; 87086; 94640; 96374; 96375; 99284; J1885; J2919; J9999